=== PATIENT | male | born 1980 | race Caucasian/White ===

== ENCOUNTER 2017-05-10 01:08 | Emergency (ER) | payer SELFPAY ==
[~2017-05-10] VITALS: Ht 177.8 cm; Wt 73.9 kg
[~2017-05-10 01:08] MED LIST: ACHD5005 PO; ASP81CT PO; ATOR40TA70 PO; CPR500T PO; CYCL10TA9 PO; DOXY100C2 PO; FENO145T2 PO; GBPN300C PO; GEMF600T3 PO; HYDR-3583 PO; IBP800T PO; KCL10CCR PO; LISI5TAB PO; OMEP-10 PO; ONDA4TAB8 SL; PRD20T PO; PRM25T PO; SULF1TAB38 PO; TRAM50TA2 PO; TRM50T PO
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
[2017-05-10] MEDS ORDERED: NS IV 1000 ML 1,000 ML IV SCH (01:19)
[2017-05-10] MEDS ORDERED: fentaNYL INJECTION 100 MCG/2 ML AMP IVP STA (01:19)
[2017-05-10] MEDS ORDERED: KETOROLAC 30 MG/ML VIAL IVP STA (01:19)
--- NOTE | 2017-05-10 01:26 | ED Back Pain ---
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 He presented here right after onset that could not wait for the admission exchange clerk to check him and so he left reportedly to go to another hospital. He states that he had to turn around and come back because the pain was too severe. He did have acute onset and denies any recent injury. Pain is not worse with movement and in fact nothing seems to make it better or worse. States the pain feels like it's inside on the left side posterior lateral at the area of the kidney. Reports that he's had kidney stones before but this does not feel like that. Location: Other (left flank) Timing/Duration: 1 Hour Severity: Moderate, Severe Pain/Injury Location: Back Radiation: Other (none) Method of Injury: Unknown Modifying Factors: Worse With Movement Associated Symptoms: No muscle spasms, No weakness, No numbness in legs/feet, No tingling in legs/feet, No sensory/motor loss, No lower back pain, No loss of bladder control, No loss of bowel control Allergies and Home Medications Allergies Coded Allergies: No Known Drug Allergies (Unverified , 04/15/09) Patient Home Medication List Home Medication List Reviewed: Yes Constitutional: see HPI, No chills, No fever EENTM: no symptoms reported Respiratory: no symptoms reported Cardiovascular: no symptoms reported Gastrointestinal: No diarrhea, No nausea, No vomiting Genitourinary: No dysuria, pain (left flank) Musculoskeletal: back pain Skin: no symptoms reported All Other Systems Reviewed Negative Unless Noted: Yes Past Spuahkv-Aguvio-Iiekpq Hx Patient Social History Alcohol Use: Denies Use Recreational Drug Use: No Smoking Status: Current Everyday Smoker Type Used: Cigarettes Recent Foreign Travel: No Contact w/Someone Who Travel: No Recent Infectious Disease Expo: No Recent Hopitalizations: No Physical Abuse: No Sexual Abuse: No Mistreated: No Fear: No Seasonal Allergies Seasonal Allergies: No Surgeries History of Surgeries: No Respiratory History of Respiratory Disorde: No Cardiovascular History of Cardiac Disorders: No Neurological History of Neurological Disord: No Reproductive System Hx Reproductive Disorders: No Gastrointestinal History of Gastrointestinal Di: Yes Gastrointestinal Disorders: Gastroesophageal Reflux Musculoskeletal History of Musculoskeletal Dis: No Endocrine History of Endocrine Disorders: No Cancer History of Cancer: No Psychosocial History of Psychiatric Problem: Yes Behavioral Health Disorders: Anxiety, Depression Suicide Risk Score: 0 Integumentary History of Skin or Integumenta: No Blood Transfusions History of Blood Disorders: No Adverse Reaction to a Blood Tr: No Reviewed Nursing Assessment Reviewed/Agree w Nursing PMH: Yes Family Medical History Significant Family History: No Pertinent Family Hx, Cancer, Diabetes Physical Exam Vital Signs Vital Signs - First Documented 05/10/17 01:10 Temp 97.0 Pulse 104 Resp 20 B/P (MAP) 148/97 (114) Pulse Ox 99 O2 Delivery Room Air Capillary Refill : Less Than 3 Seconds General Appearance: WD/WN, Moderate Distress HEENT: Pharynx Normal, Other (poor dentition) Neck: Full Range of Motion, Normal Inspection, Non Tender, Supple Cardiovascular: No Murmur, Tachycardia Respiratory: Lungs Clear, Normal Breath Sounds Gastrointestinal: Non Tender, Soft Back: No Vertebral Tenderness, CVA Tenderness (L), No CVA Tenderness (R) Extremity: Normal Capillary Refill, Normal Inspection, Normal Range of Motion, Non Tender Neurologic/Psychiatric: Alert, Oriented x3 Skin: Normal Color, Warm/Dry Progress/Results/Core Measures Results/Orders Lab Results Laboratory Tests Test 05/10/17 01:21 05/10/17 01:34 Range/Units Urine Color RED H Urine Clarity SLIGHTLY CLOUDY Urine pH 5 5-9 Urine Specific [place] 1.020 1.016-1.022 Urine Protein 2+ H NEGATIVE Urine Glucose (UA) NEGATIVE NEGATIVE Urine Ketones NEGATIVE NEGATIVE Urine Nitrite NEGATIVE NEGATIVE Urine Bilirubin NEGATIVE NEGATIVE Urine Urobilinogen NORMAL NORMAL MG/DL Urine Leukocyte Esterase 1+ H NEGATIVE Urine RBC (Auto) 5+ H NEGATIVE Urine RBC >100 H /HPF Urine WBC 0-2 /HPF Urine Squamous Epithelial Cells RARE /HPF Urine Crystals NONE /LPF Urine Bacteria TRACE /HPF Urine Casts NONE /LPF Urine Mucus NEGATIVE /LPF Urine Culture Indicated NO Urine Opiates Screen NEGATIVE NEGATIVE Urine Oxycodone Screen NEGATIVE NEGATIVE Urine Methadone Screen NEGATIVE NEGATIVE Urine Propoxyphene Screen NEGATIVE NEGATIVE Urine Barbiturates Screen NEGATIVE NEGATIVE Ur Tricyclic Antidepressants Screen NEGATIVE NEGATIVE Urine Phencyclidine Screen NEGATIVE NEGATIVE Urine Amphetamines Screen POSITIVE H NEGATIVE Urine Methamphetamines Screen POSITIVE H NEGATIVE Urine Benzodiazepines Screen NEGATIVE NEGATIVE Urine Cocaine Screen NEGATIVE NEGATIVE Urine Cannabinoids Screen POSITIVE H NEGATIVE White Blood Count 16.0 H 4.3-11.0 10^3/uL Red Blood Count 4.76 4.35-5.85 10^6/uL Hemoglobin 14.2 13.3-17.7 G/DL Hematocrit 41 40-54 % Mean Corpuscular Volume 87 80-99 FL Mean Corpuscular Hemoglobin 30 25-34 PG Mean Corpuscular Hemoglobin Concent 34 32-36 G/DL Red Cell Distribution Width 13.7 10.0-14.5 % Platelet Count 364 130-400 10^3/uL Mean Platelet Volume 8.3 7.4-10.4 FL Neutrophils (%) (Auto) 78 H 42-75 % Lymphocytes (%) (Auto) 14 12-44 % Monocytes (%) (Auto) 7 0-12 % Eosinophils (%) (Auto) 1 0-10 % Basophils (%) (Auto) 0 0-10 % Neutrophils # (Auto) 12.5 H 1.8-7.8 X 10^3 Lymphocytes # (Auto) 2.2 1.0-4.0 X 10^3 Monocytes # (Auto) 1.1 H 0.0-1.0 X 10^3 Eosinophils # (Auto) 0.1 0.0-0.3 10^3/uL Basophils # (Auto) 0.0 0.0-0.1 10^3/uL Neutrophils % (Manual) 75 % Lymphocytes % (Manual) 16 % Monocytes % (Manual) 6 % Eosinophils % (Manual) 2 % Basophils % (Manual) 0 % Band Neutrophils 0 % Reactive Lymphocytes 1 % Blood Morphology Comment NORMAL Sodium Level 137 135-145 MMOL/L Potassium Level 3.7 3.6-5.0 MMOL/L Chloride Level 105 98-107 MMOL/L Carbon Dioxide Level 22 21-32 MMOL/L Anion Gap 10 5-14 MMOL/L Blood Urea Nitrogen 13 7-18 MG/DL Creatinine 1.19 0.60-1.30 MG/DL Estimat Glomerular Filtration Rate > 60 BUN/Creatinine Ratio 11 Glucose Level 117 H 70-105 MG/DL Calcium Level 9.0 8.5-10.1 MG/DL Total Bilirubin 0.3 0.1-1.0 MG/DL Aspartate Amino Transf (AST/SGOT) 18 5-34 U/L Alanine Aminotransferase (ALT/SGPT) 14 0-55 U/L Alkaline Phosphatase 70 40-136 U/L C-Reactive Protein High Sensitivity 0.38 0.00-0.50 MG/DL Total Protein 6.8 6.4-8.2 GM/DL Albumin 4.1 3.2-4.5 GM/DL My Orders Orders - CHACE MARTIN MD Cbc With Automated Diff (05/10/17:19) Comprehensive Metabolic Panel (05/10/17:19) Hs C Reactive Protein (05/10/17:) Drug Screen Stat (Urine) (05/10/17:) Ua Culture If Indicated (05/10/17) Ct Abd/Pelvis Wo(Kidney Stone) (05/10/17:19) Saline Lock/Iv-Start (05/10/17:) Ns Iv 1000 Ml (Sodium Chloride 0.9%) (05/10/17:19) Fentanyl Injection (Sublimaze Injection (05/10/17:19) Ketorolac Injection (Toradol Injection) (05/10/17:19) Abdomen/Kub 1view (05/10/17 01:29) Manual Differential (05/10/17 01:34) Rx-Hydrocodone/Apap 5-325 Mg (Rx-Vicodin (05/10/17 03:00) Vital Signs/I&O Vital Sign - Last 12Hours 05/10/17 01:10 Temp 97.0 Pulse 104 Resp 20 B/P (MAP) 148/97 (114) Pulse Ox 99 O2 Delivery Room Air Blood Pressure Mean: 114 Progress Note : Progress Note Seen and evaluated. IV, labs, UA, CT abdomen and pelvis ordered. Normal saline 1 L bolus ordered. Fentanyl 75 g IV and Toradol 30 mg IV ordered. Monitor patient. KUB ordered with CT appears to be positive for stone on the left. 0250: Pain much improved. Stone noted on CT. KUB also complete. Discharged home with return precautions. Patient verbalize understanding instructions and agreement with plan. Diagnostic Imaging Diagonstic Imaging: CT Plain Films/CT/US/NM/MRI: abdomen, pelvis Comments Obstructing 4.5 mm calculus at the left UVJ. Reviewed: Reviewed Night Juan Study, Reviewed by Me Departure Impression Impression: Primary Impression: Left ureteral stone Disposition: 01 HOME, SELF-CARE Condition: Improved Departure-Patient Inst. Decision time for Depature: 02:56 Referrals: NO,LOCAL PHYSICIAN (PCP) Primary Care Physician ELLIOTT CORNELIUS MD Patient Instructions: Kidney Stones (DC) Add. Discharge Instructions: All discharge instructions reviewed with patient and/or family. Voiced understanding. You may take ibuprofen 800 mg every 8 hours as needed for pain. Take other medications as directed. Follow-up with your doctor and/or Dr. Cornelius for recheck and further evaluation. Strain your urine and watch for passage of stone. Drink plenty of fluids. Return for worse pain, fever, vomiting, weakness, breathing problems or other concerns as needed. Scripts Hydrocodone Bit/Acetaminophen (Hydrocodone/Acetaminophen 5/325mg Tablet) 1 Tab Tab 1-2 EACH PO Q6H Y for PAIN-MODERATE, #15 TAB 0 Refills Prov: CHACE MARTIN MD 05/10/17 Cephalexin (Cephalexin) 500 Mg Tablet 500 MG PO BID, #14 TAB 0 Refills Prov: CHACE MARTIN MD 05/10/17 CHACE MARTIN MD May 10, 2017 01:26
[2017-05-10 01:29] LABS: BILIRUBIN,URINE NEGATIVE (NEGATIVE); CLARITY,URINE SLIGHTLY CLOUDY; COLOR,URINE RED; GLUCOSE, URINE (UA) NEGATIVE (NEGATIVE); KETONES,URINE NEGATIVE (NEGATIVE); LEUKOCYTE ESTERASE ,URINE 1+ (NEGATIVE); NITRITE,URINE NEGATIVE (NEGATIVE); PH,URINE 5 (5-9); PROTEIN,URINE 2+ (NEGATIVE); UROBILINOGEN,URINE NORMAL (NORMAL)
[2017-05-10 01:37] LABS: BACTERIA,URINE TRACE /HPF; RBC,URINE >100 /HPF; SQUAMOUS EPITHELIAL CELL,UR RARE /HPF; WBC,URINE 0-2 /HPF
[2017-05-10 01:40] LABS: AMPHETAMINE SCREEN, URINE POSITIVE (NEGATIVE); BARBITURATE SCREEN URINE NEGATIVE (NEGATIVE); BENZODIAZEPINES SCREEN URINE NEGATIVE (NEGATIVE); CANNABINOID SCREEN, URINE POSITIVE (NEGATIVE); COCAINE SCREEN URINE NEGATIVE (NEGATIVE); METHADONE STAT NEGATIVE (NEGATIVE); METHAMPHETAMINE SCREEN URINE S POSITIVE (NEGATIVE); OPIATE SCREEN URINE NEGATIVE (NEGATIVE); OXYCODONE STAT NEGATIVE (NEGATIVE); PROPOXYPHENE STAT NEGATIVE (NEGATIVE); TRICYCLIC ANTIDEPRESSANTS SCRE NEGATIVE (NEGATIVE)
[2017-05-10 01:47] LABS: BASOPHILS % (AUTO) 0 % (0-10); EOSINOPHILS # (AUTO) 0.1 10^3/uL (0.0-0.3); EOSINOPHILS % (AUTO) 1 % (0-10); HEMATOCRIT 41 % (40-54); HEMOGLOBIN 14.2 G/DL (13.3-17.7); LYMPHOCYTES # (AUTO) 2.2 X 10^3 (1.0-4.0); LYMPHOCYTES % (AUTO) 14 % (12-44); MEAN CORPUSCULAR HEMOGLOBIN 30 PG (25-34); MEAN CORPUSCULAR HGB CONC 34 G/DL (32-36); MEAN CORPUSCULAR VOLUME 87 FL (80-99); MEAN PLATELET VOLUME 8.3 FL (7.4-10.4); MONOCYTES # (AUTO) 1.1 X 10^3 (0.0-1.0); MONOCYTES % (AUTO) 7 % (0-12); NEUTROPHILS # (AUTO) 12.5 X 10^3 (1.8-7.8); NEUTROPHILS % (AUTO) 78 % (42-75); PLATELET COUNT 364 10^3/uL (130-400); RED BLOOD COUNT 4.76 10^6/uL (4.35-5.85); RED CELL DISTRIBUTION WIDTH 13.7 % (10.0-14.5)
[2017-05-10 02:07] LABS: ALANINE AMINOTRANSFERASE 14 U/L (0-55); ALBUMIN 4.1 GM/DL (3.2-4.5); ALKALINE PHOSPHATASE 70 U/L (40-136); BILIRUBIN,TOTAL 0.3 MG/DL (0.1-1.0); BUN/CREATININE RATIO 11; CARBON DIOXIDE 22 MMOL/L (21-32); CHLORIDE 105 MMOL/L (98-107); CREATININE SERUM 1.19 MG/DL (0.60-1.30); GFR ESTIMATED > 60; GLUCOSE 117 MG/DL (70-105); POTASSIUM 3.7 MMOL/L (3.6-5.0); SODIUM 137 MMOL/L (135-145); TOTAL PROTEIN 6.8 GM/DL (6.4-8.2)
[2017-05-10 02:13] LABS: BAND NEUTROPHILS 0 %; BASOPHILS % (MANUAL) 0 %; EOSINOPHILS % (MANUAL) 2 %; LYMPHOCYTES % (MANUAL) 16 %; MONOCYTES % (MANUAL) 6 %; NEUTROPHILS % (MANUAL) 75 %; RBC MORPH NORMAL; REACTIVE LYMPHOCYTES 1 %
[2017-05-10] MEDS ORDERED: ACHD5005 PO (02:58)
[2017-05-10] MEDS ORDERED: CEPH500T PO (02:58)
[2017-05-10] MEDS ORDERED: RX-HYDROCODONE/APAP 5/325 MG #4 TAB PK PO PRN (03:00)
[2017-05-10 03:16] VITALS: BP 145/87
--- NOTE | 2017-05-10 06:45 | Diagnostic Imaging Report ---
PROCEDURE: CT urinary tract, rule out kidney stone. TECHNIQUE: Multiple contiguous axial images were obtained through the abdomen and pelvis without the use of intravenous contrast. INDICATION: Left flank pain. COMPARISON: 01/02/2013 FINDINGS: Evaluation of the abdominal viscera is mildly limited without contrast. Lower chest: The lung bases are clear. No pericardial or pleural effusion. Peritoneum: No free intraperitoneal air or fluid. Liver and biliary system: Unenhanced liver is normal. The gallbladder is normal. No biliary duct dilation. Spleen and Pancreas: Spleen is normal. Unenhanced pancreas is grossly normal. Adrenals: Normal. tract: Mild left hydronephrosis and hydroureter secondary to a 4 mm distal left ureteral stone at the level of the UVJ. No right-sided renal or ureteral stones. Urinary bladder is decompressed, which limits evaluation. Prostate is not enlarged. GI tract: Stomach is decompressed. No bowel obstruction. No pericolonic inflammatory changes. Normal appendix. Vasculature and Lymph nodes: Normal caliber aorta. No abdominal or pelvic lymphadenopathy. Musculoskeletal: No concerning osseous lesion. IMPRESSION: 1. A 4 mm distal left ureteral stone at the UVJ results in mild left hydronephrosis and hydroureter. 2. Findings are in agreement with the preliminary report. Dictated by: Dictated on workstation # [id number]
--- NOTE | 2017-05-10 07:15 | Diagnostic Imaging Report ---
INDICATION: Left flank pain. COMPARISON: CT abdomen and pelvis performed earlier same day at 1:30 AM. FINDINGS: The patient's known left distal UVJ stone is not radiographically apparent. Nonobstructive bowel gas pattern. No free intraperitoneal air. Normal regional skeleton. IMPRESSION: The patient's known distal left ureteral stone at the UVJ is not radiographically apparent. Dictated by: Dictated on workstation # [id number]
== END 2017-05-10 03:16 | disposition home or self-care (01) ==
LOC: EDUNIT# 01:08 → ER 01:10
DX: N20.1 Calculus of ureter (principal); K21.9 Gastro-esophageal reflux disease without esophagitis; F41.9 Anxiety disorder, unspecified; F32.9 Major depressive disorder, single episode, unspecified; F17.210 Nicotine dependence, cigarettes, uncomplicated
CPT/HCPCS: 36415; 74018; 74176; 80053; 80306; 81000; 85007; 85027; 86141

== ENCOUNTER 2017-07-13 12:08 | Emergency (ER) | payer SELFPAY ==
[~2017-07-13] VITALS: Ht 177.8 cm; Wt 81.6 kg
[~2017-07-13 12:08] MED LIST changes: +CEPH500T PO
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
--- NOTE | 2017-07-13 12:49 | Diagnostic Imaging Report ---
INDICATION: Left shoulder pain. COMPARISON: None. FINDINGS: Three views of the left shoulder were obtained. There is no fracture, dislocation, or other acute bony abnormality identified. The soft tissues appear unremarkable. No radiopaque foreign bodies identified. The visualized portions of the left lung are clear. IMPRESSION: No acute fractures or dislocations of the left shoulder. Dictated by: Dictated on workstation # [id number]
--- NOTE | 2017-07-13 13:11 | ED Upper Extremity ---
General Chief Complaint: Upper Extremity Stated Complaint: LT SHOULDER PAIN Nursing Triage Note: Pt c/o L shoulder pain x2 weeks. Pt reports pain is worse w/ movement. Pt denies any injury. Nursing Sepsis Screen: No Definite Risk Source: patient Exam Limitations: no limitations History of Present Illness Date Seen by Provider: July 13, 2017 Time Seen by Provider: 13:11 Initial Comments 36-year-old male patient presents to the emergency department with complaints of left shoulder pain 2 weeks. Denies any known recent injury. Reports pain is worse with movement. Denies numbness or tingling. Onset: other (2 weeks onset) Pain/Injury Location: left shoulder Method of Injury: unknown Modifying Factors: Worse With Movement Allergies and Home Medications Allergies Coded Allergies: No Known Drug Allergies (Unverified , 04/15/09) Home Medications Cephalexin 500 Mg Tablet, 500 MG PO BID Prescribed by: CHACE MARTIN on 05/10/17 0258 Hydrocodone Bit/Acetaminophen 1 Tab Tab, 1-2 EACH PO Q6H PRN for PAIN-MODERATE Prescribed by: CHACE MARTIN on 05/10/17 0258 Patient Home Medication List Home Medication List Reviewed: Yes Constitutional: no symptoms reported Respiratory: no symptoms reported Cardiovascular: no symptoms reported Musculoskeletal: see HPI; No back pain; joint pain (left shoulder pain.); No joint swelling, No neck pain Skin: no symptoms reported Psychiatric/Neurological: Denies Headache, Denies Numbness, Denies Paresthesia , Denies Tingling, Denies Weakness All Other Systems Reviewed Negative Unless Noted: Yes (Negative excepted noted.) Past Mebbtgp-Phiwzl-Nfxhig Hx Patient Social History Alcohol Use: Denies Use Recreational Drug Use: No ((+) drug screen for amphetamines and methamphetamines on 05/13/17.) Smoking Status: Current Everyday Smoker Type Used: Cigarettes Recent Foreign Travel: No Contact w/Someone Who Travel: No Recent Infectious Disease Expo: No Recent Hopitalizations: No Seasonal Allergies Seasonal Allergies: No Past Medical History Surgeries: No Respiratory: No Cardiac: No Neurological: No Reproductive Disorders: No Gastrointestinal: Yes Gastroesophageal Reflux Musculoskeletal: No Endocrine: No Cancer: No Psychosocial: Yes Anxiety, Depression Integumentary: No Blood Disorders: No Adverse Reaction/Blood Tranf: No Family Medical History Reviewed Nursing Family Hx No Pertinent Family Hx, Cancer, Diabetes Physical Exam Vital Signs Vital Signs - First Documented 07/13/17 12:22 Temp 97.3 Pulse 93 Resp 18 B/P (MAP) 141/83 (102) Pulse Ox 95 O2 Delivery Room Air Capillary Refill : Less Than 3 Seconds General Appearance: WD/WN, no apparent distress HEENT: PERRL/EOMI, pharynx normal, other (poor dentition. Front 2 upper teeth decayed to the gumline.) Neck: non-tender, full range of motion, supple, normal inspection Cardiovascular: normal peripheral pulses, regular rate, rhythm, no murmur Respiratory: lungs clear, normal breath sounds, no respiratory distress, no accessory muscle use Shoulder: normal inspection (normal inspection bilaterally. right shoulder nontender. ), no evidence of injury (bilaterally), normal ROM (bilateral shoulder shows normal ROM), bone tenderness, pain, soft tissue tenderness (left posterior shoulder) Elbow/Forearm: normal inspection (bilateral), non-tender (bilateral), no evidence of injury (bilateral), normal ROM (bilateral) Wrist: Yes normal inspection, Yes non-tender, Yes no evidence of injury, Yes normal ROM Hand: normal inspection, non-tender, no evidence of injury, normal ROM, Bilateral Neurologic/Tendon: normal sensation, normal motor functions, normal tendon functions, responds to pain Neurologic/Psychiatric: no motor/sensory deficits, alert, normal mood/affect, oriented x 3 Skin: normal color, warm/dry Progress/Results/Core Measures Results/Orders My Orders Orders - TERESA QUINTERO Shoulder, Left, 3 Views (07/13/17 12:29) Vital Signs/I&O 07/13/17 12:22 Temp 97.3 Pulse 93 Resp 18 B/P (MAP) 141/83 (102) Pulse Ox 95 O2 Delivery Room Air Blood Pressure Mean: 102 Diagnostic Imaging Diagonstic Imaging: Xray Plain Films/CT/US/NM/MRI: other (left shoulder) Comments SHOULDER, LEFT, 3 VIEWS INDICATION: Left shoulder pain. COMPARISON: None. FINDINGS: Three views of the left shoulder were obtained. There is no fracture, dislocation, or other acute bony abnormality identified. The soft tissues appear unremarkable. No radiopaque foreign bodies identified. The visualized portions of the left lung are clear. IMPRESSION: No acute fractures or dislocations of the left shoulder. Dictated on workstation # [id number] Reviewed: Reviewed by Me (radiology report reviewed by me) Departure Communication (Admissions) Patient seen and evaluated. States he is driving himself home from the emergency department. Patient denies need for pain medication at this time. States he will draft roller picker his prescriptions and take the medications when he gets home. Impression Primary Impression: Strain of tendon of left rotator cuff Qualified Codes: S46.012A - Strain of muscle(s) and tendon(s) of the rotator cuff of left shoulder, initial encounter Disposition: HOME, SELF-CARE Condition: Improved Departure-Patient Inst. Decision time for Depature: 13:20 Referrals: NO,LOCAL PHYSICIAN (PCP) Primary Care Physician YONIS MOSHER (Family) Primary Care Physician Patient Instructions: Muscle Strain (DC) Add. Discharge Instructions: All discharge instructions reviewed with patient and/or family. Voiced understanding. Medications as instructed. Tylenol Extra Strength over-the- counter as directed for pain. Use a heating pad or pack as needed for pain. Avoid heavy lifting for 3 days with the left upper extremity. Then increase activity as tolerated. Follow-up with your family practitioner for recheck as an outpatient if no improvement in symptoms. Return to the emergency department for worsened symptoms or any other concerns. Scripts Diclofenac Sodium (Diclofenac Sodium) 75 Mg Tablet.dr 75 MG PO BID PRN for pain, #20 TAB 0 Refills Prov: TERESA QUINTERO 07/13/17 Cyclobenzaprine HCl (Cyclobenzaprine HCl) 10 Mg Tablet 10 MG PO Q8H PRN for SPASMS, #10 TAB 0 Refills Prov: TERESA QUINTERO 07/13/17 Prednisone (Prednisone) 20 Mg Tab 40 MG PO DAILY, #10 TAB 0 Refills Prov: TERESA QUINTERO 07/13/17 Work/School Note: Work Release Form Date Seen in the Emergency Department: July 13, 2017 Return to Work: July 13, 2017 Other Restrictions Listed Below: no heavy lifting with the left upper extremity x3 days. TERESA QUINTERO July 13, 2017 13:11
[2017-07-13] MEDS ORDERED: PRD20T PO (13:23)
[2017-07-13] MEDS ORDERED: DICL75TA2 PO (13:23)
[2017-07-13] MEDS ORDERED: CYCL10TA9 PO (13:23)
[2017-07-13 13:34] VITALS: BP 141/83
== END 2017-07-13 13:34 | disposition home or self-care (01) ==
LOC: EDUNIT# 12:08 → ER 12:11
DX: S46.012A Strain of muscle(s) and tendon(s) of the rotator cuff of left shoulder, initial encounter (principal); K21.9 Gastro-esophageal reflux disease without esophagitis; F41.9 Anxiety disorder, unspecified; F32.9 Major depressive disorder, single episode, unspecified; F17.210 Nicotine dependence, cigarettes, uncomplicated; F15.10 Other stimulant abuse, uncomplicated; X58.XXXA Exposure to other specified factors, initial encounter
CPT/HCPCS: 73030

== ENCOUNTER 2017-07-26 13:05 | Emergency (ER) | payer SELFPAY ==
[~2017-07-26] VITALS: Ht 177.8 cm; Wt 81.6 kg
[~2017-07-26 13:05] MED LIST changes: +DICL75TA2 PO
[2017-07-26] MEDS ORDERED: methylPREDNISolone 80 MG/ML (DEPO MEDROL) VIAL IM ONE (13:30)
[2017-07-26] MEDS ORDERED: KETOROLAC 30 MG/ML VIAL IM ONE (13:30)
[2017-07-26] MEDS ORDERED: ORPHENADRINE 60 MG/2 ML (NORFLEX) AMP IM ONE (13:30)
--- NOTE | 2017-07-26 13:32 | ED Upper Extremity ---
General Chief Complaint: Upper Extremity Stated Complaint: CP,SHOULDER PAIN,CAN'T FEEL LT ARM Nursing Triage Note: PT REPORTS PAIN IN LEFT SHOULDER X 1 MONTH. WAS SEEN IN OUR ER APPROX 1 WEEK AGO FOR SHOULDER DISCOMFORT PER PT AND GIVEN STEROIDS. PT REPORTS THIS AM PAIN IS WORSENING OVER LAST 20 MINUTES, WITH INTERMITTENT SHARP PAIN, AND TIGHTNESS TO UPPER CHEST, PT REPORTS "FEELS LIKE HAND IS ASLEEP AND TINGLING." Nursing Sepsis Screen: No Definite Risk Source: patient Exam Limitations: no limitations History of Present Illness Date Seen by Provider: July 26, 2017 Time Seen by Provider: 13:18 Initial Comments The patient presents to the ER by private conveyance with a chief complaint of left shoulder pain and numbness that started about 20 minutes ago in his left arm. He says it feels like pins and needles when his foot goes asleep. He was seen 12 days ago in this ER for same complaint that time he was not having any numbness or neurologic deficits area he was diagnosed with rotator cuff strain/ sprain. He was put on a short burst of steroids, NSAIDs and muscle relaxants which she said helped but they have ran out. He has not followed up with his primary care office for this. He has never had a traumatic injury to this shoulder nor any surgeries. He does not follow with an orthopedic surgeon. He is right-handed and works in [employer]. The pain is about the same as it was before however the numbness is new and what concerns him today. He has no history of recent surgeries, periods of immobility or pain in his calves, shortness of breath, hemoptysis. Allergies and Home Medications Allergies Coded Allergies: No Known Drug Allergies (Unverified , 04/15/09) Home Medications Cephalexin 500 Mg Tablet, 500 MG PO BID Prescribed by: CHACE MARTIN on 05/10/17257 Cyclobenzaprine HCl 10 Mg Tablet, 10 MG PO Q8H PRN for SPASMS Prescribed by: TERESA QUINTERO on 07/13/17 132 Diclofenac Sodium 75 Mg Tablet.dr, 75 MG PO BID PRN for pain Prescribed by: TERESA QUINTERO on 07/13/17 132 Hydrocodone Bit/Acetaminophen 1 Tab Tab, 1-2 EACH PO Q6H PRN for PAIN-MODERATE Prescribed by: CHACE MARTIN on 05/10/17257 Prednisone 20 Mg Tab, 40 MG PO DAILY Prescribed by: TERESA QUINTERO on 07/13/17 1323 Patient Home Medication List Home Medication List Reviewed: Yes Constitutional: No chills, No diaphoresis EENTM: No hearing loss, No ear pain Respiratory: No cough, No short of breath Cardiovascular: No chest pain, No edema, No Hx of Intervention, No palpitations , No syncope, No vascular heart diseas Gastrointestinal: No abdominal pain, No constipation, No diarrhea Genitourinary: No discharge, No dysuria Musculoskeletal: No back pain; joint pain (left shoulder), muscle pain (left pectoralis, deltoid) Skin: No pruritus, No rash Past Legbyku-Bksqhp-Ihrnru Hx Patient Social History Alcohol Use: Denies Use Recreational Drug Use: Yes Drug of Choice: MJ Smoking Status: Current Everyday Smoker Type Used: Cigarettes Recent Foreign Travel: No Contact w/Someone Who Travel: No Recent Infectious Disease Expo: No Recent Hopitalizations: No Seasonal Allergies Seasonal Allergies: No Past Medical History Surgeries: No Respiratory: No Cardiac: No Neurological: No Reproductive Disorders: No Gastrointestinal: Yes Gastroesophageal Reflux Musculoskeletal: No Endocrine: No HEENT: No Cancer: No Psychosocial: Yes Anxiety, Depression Integumentary: No Blood Disorders: No Adverse Reaction/Blood Tranf: No Family Medical History No Pertinent Family Hx, Cancer, Diabetes Physical Exam Vital Signs Vital Signs - First Documented 07/26/17 13:14 Pulse 100 Resp 18 B/P (MAP) 130/76 (94) Pulse Ox 99 O2 Delivery Room Air Capillary Refill : Less Than 3 Seconds General Appearance: WD/WN, no apparent distress, other (rhythmic movement tic of his mandible and arms.) HEENT: PERRL/EOMI, TMs normal, other (severe dental caries front incisors bilaterally) Neck: non-tender, full range of motion, supple, normal inspection Cardiovascular: normal peripheral pulses, regular rate, rhythm, no edema Respiratory: normal breath sounds, no respiratory distress, no accessory muscle use, other (left pectoralis and shoulder tender to palpation) Gastrointestinal: normal bowel sounds, non tender, soft Back: normal inspection, no vertebral tenderness Shoulder: normal inspection, normal ROM (tenderness on abduction left), pain, soft tissue tenderness (infraspinatus tender to palpation) Elbow/Forearm: normal inspection, non-tender, no evidence of injury, normal ROM , Left Wrist: Yes normal inspection, Yes non-tender, Yes no evidence of injury, Yes normal ROM Hand: normal inspection, non-tender, no evidence of injury, normal ROM, Left Reflexes: 2+ bicep (R), 2+ bicep (L), 2+ tricep (R), 2+ tricep (L) Neurologic/Tendon: normal sensation, normal motor functions, normal tendon functions, responds to pain, no evidence tendon injury Neurologic/Psychiatric: supervisor powdered sugar II-XII nml as tested, alert, normal mood/affect, oriented x 3 Skin: normal color, warm/dry, other (no erythema, evidence of track long, bruising etc.) Lymphatic: no adenopathy Progress/Results/Core Measures Results/Orders My Orders Orders - DIAMOND NOVA Ketorolac Injection (Toradol Injection) (07/26/17 13:30) Methylprednisolone Acetate Inj (Depo-Med (07/26/17 13:30) Orphenadrine Injection (Norflex Injectio (07/26/17 13:30) Shoulder, Left, 3 Views (07/26/17 13:26) Medications Given in ED Current Medications Medications Dose Ordered Sig/Erin Route Start Time Stop Time Status Last Admin Dose Admin Ketorolac Tromethamine 30 mg ONCE ONCE IM 07/26/17 13:30 07/26/17 13:31 DC 07/26/17 14:32 30 MG Methylprednisolone Acetate 80 mg ONCE ONCE IM 07/26/17 13:30 07/26/17 13:31 DC 07/26/17 14:32 80 MG Orphenadrine Citrate 60 mg ONCE ONCE IM 07/26/17 13:30 07/26/17 13:31 DC 07/26/17 14:36 60 MG Vital Signs/I&O 07/26/17 13:14 Pulse 100 Resp 18 B/P (MAP) 130/76 (94) Pulse Ox 99 O2 Delivery Room Air Blood Pressure Mean: 94 Progress Progress Note : Time: 13:38 Progress Note The patient's pain is chronic for the last several weeks now and does seem to be related to the muscles of his shoulder. What concerned him is the paresthesias. His motor nerves and sensory nerves are intact as tested paresthesias which is probably local inflammation causing a brachial compression syndrome versus cervical radiculopathy. I can't find a specific point to push on where doing a pain point injection would be useful so were discontinue use and IM steroid, NSAIDs and muscle relaxants. Be happy to give him a referral to orthopedics and we have encouraged him to follow up with his primary care doctor to get this done. There does not clinically seem to be a coronary or arterial source of his symptoms. He has symmetric bounding radial pulses. Diagnostic Imaging Diagonstic Imaging: Xray Plain Films/CT/US/NM/MRI: other (left shoulder 3 v) Comments VIA [facility]. [place], [place] NAME: ANIBAL MENJIVAR III [facility] REC#: [id number] PT STATUS: REG ER : 1980 PHYSICIAN: DIAMOND NOVA MD ADMIT DATE: 07/26/17/ER Draft Date of Exam:07/26/17 SHOULDER, LEFT, 3 VIEWS INDICATION: Left shoulder pain. AP, oblique, and transscapular views of the left shoulder are obtained. FINDINGS: No fracture or dislocation is seen. There is no acute bony abnormality. IMPRESSION: Negative left shoulder. Dictated on workstation # [id number] Dict: 07/26/17 1422 Trans: 07/26/17 1424 BERNARDINO [id number] Interpreted by: QUINTON ARELLANO MD Electronically signed by: Departure Impression Primary Impression: Rotator cuff injury Qualified Codes: S46.002A - Unspecified injury of muscle(s) and tendon(s) of the rotator cuff of left shoulder, initial encounter Additional Impression: Arm paresthesia, left Disposition: 01 HOME, SELF-CARE Condition: Improved Departure-Patient Inst. Decision time for Depature: 14:42 Referrals: NO,LOCAL PHYSICIAN (PCP) Primary Care Physician YONIS MOSHER (Family) Primary Care Physician MARAH HURTADO DO Patient Instructions: Rotator Cuff Injury (DC) Add. Discharge Instructions: Start taking Naprosyn 2 capsules twice a day or ibuprofen 4 tablets 3 times a day on schedule for the next 4 weeks. You can also take Tylenol 1000 mg every 8 hours for breakthrough pain. You can apply icy hot or other similar creams to her shoulder. You can use an ice pack for the next couple days to bring the swelling down. The steroid will start taking in over the next 12-[address] Hurtado at [facility] to get an appointment. You will probably need referral from your primary care doctor so you should also call Yonis Mosher and request an appointment for reevaluation of your shoulder. All discharge instructions reviewed with patient and/or family. Voiced understanding. Work/School Note: Work Release Form Date Seen in the Emergency Department: July 26, 2017 Return to Work: July 27, 2017 Restrictions: Need Release from Doctor Other Restrictions Listed Below: No lifting more than 10 pounds left shoulder for 2 weeks. Copy Copies To 1: HIWOT MENJIVAR DO; MARAH HURTADO DO DIAMOND NOVA July 26, 2017 13:32
--- NOTE | 2017-07-26 14:25 | Diagnostic Imaging Report ---
INDICATION: Left shoulder pain. AP, oblique, and transscapular views of the left shoulder are obtained. FINDINGS: No fracture or dislocation is seen. There is no acute bony abnormality. IMPRESSION: Negative left shoulder. Dictated by: Dictated on workstation # [id number]
[2017-07-26 15:05] VITALS: BP 120/66
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
== END 2017-07-26 15:04 | disposition home or self-care (01) ==
LOC: EDUNIT# 13:05 → ER 13:06
DX: S46.002A Unspecified injury of muscle(s) and tendon(s) of the rotator cuff of left shoulder, initial encounter (principal); R20.2 Paresthesia of skin; K21.9 Gastro-esophageal reflux disease without esophagitis; F41.9 Anxiety disorder, unspecified; F32.9 Major depressive disorder, single episode, unspecified; F12.10 Cannabis abuse, uncomplicated; F17.210 Nicotine dependence, cigarettes, uncomplicated; Z79.52 Long term (current) use of systemic steroids; X58.XXXA Exposure to other specified factors, initial encounter
CPT/HCPCS: 73030; 96372

== ENCOUNTER → 2017-08-09 | Outpatient (CLI) | payer SELFPAY ==
--- NOTE | 2017-08-09 13:08 | Diagnostic Imaging Report ---
PROCEDURE: MRI left upper extremity without contrast. TECHNIQUE: Multiplanar, multisequence non contrast-enhanced MRI of the left upper extremity was accomplished. INDICATION: Shoulder injury with pain. FINDINGS: The acromioclavicular joint is unremarkable. There is mild thickening and increased signal intensity in the supraspinatous tendon likely reflecting some tendinopathy. Infraspinatus teres minor and subscapularis muscles and tendons are intact. There is no evidence of a full-thickness rotator cuff tear. All 4 muscles of the rotator cuff demonstrate normal volume and signal intensity. The labrum appears to be normal in signal intensity and morphology. Biceps tendon is seen in the bicipital groove and is normal in appearance. Biceps anchor is intact. There are no marrow signal intensity abnormalities. There are no other focal soft tissue. IMPRESSION: Mild tendinopathy of the supraspinatous tendon without evidence of full-thickness rotator cuff tear. No other internal derangement of the shoulder. Dictated by: Dictated on workstation # [id number]
== END ==
LOC: RAD 08:52
PROVIDERS: ATTEND Physician Assistant
DX: M67.814 Other specified disorders of tendon, left shoulder (principal)
CPT/HCPCS: 73221

== ENCOUNTER → 2017-08-24 | Outpatient (CLI) | payer SELFPAY ==
--- NOTE | 2017-08-24 12:48 | Diagnostic Imaging Report ---
PROCEDURE: MR imaging cervical spine without contrast. INDICATION: Neck pain with left shoulder pain. Limited range of motion for over a month. No known injury. TECHNIQUE: Multiplanar, multisequence MR imaging of the cervical spine was performed without contrast. CORRELATION STUDY: None. FINDINGS: Trace retrolisthesis of C3 on C4. Cervical vertebral body heights are fairly well maintained. Very slight anterior wedging at T1 level. No concerning geographic lesion. Odontoid intact. Craniocervical junction unremarkable. C2-C3 level: There is suggestion of mild posterior spondylitic ridging. There does appear to be perhaps very slight paramidline disc bulge with slight flattening of the ventral thecal sac. No significant canal stenosis. C3-C4 level: Loss of disc space height. Rather prominent asymmetric areas of disc bulge and protrusion as well as endplate osteophyte formation. There is flattening of the ventral thecal sac. Midline AP spinal canal at 8 mm. There is contour deformity and flattening of the cord. There is significant absence of surrounding CSF. Rather significant bilateral foraminal narrowing with asymmetric disc and osteophyte formation extending into the foramina, appearing slightly greater on the left. Question slight T2 cord signal changes may be reflective of mild edema. C4-C5 level: Also with loss of disc space height with rather significant disc bulge/protrusion as well as endplate and osteophyte formation. This results in flattening of the ventral thecal sac and spinal canal narrowing to approximately 7 mm. There is some contour deformity of the cord. Disc and osteophyte formation result in significant bilateral foraminal narrowing, perhaps slightly greater on the left. Generalized absence of surrounding CSF. C5-C6 level: Mild posterior spondylitic presence with slight flattening of the ventral thecal sac. AP dimension of the spinal canal at approximately 1 cm. No definitive evidence for foraminal narrowing. C6-C7 level: Slight loss of disc space height. There is what appears to be slightly prominent asymmetric disc and osteophyte formation to the left of midline with left ventrolateral and exiting neuroforaminal stenosis. Slight contour deformity of the ventral aspect of the thecal sac. Right foramina better preserved and unremarkable. C7-T1 level: Unremarkable. IMPRESSION: 1. C3-C4 and C4-C5 disc spaces with significant disc and osteophyte formation including with disc protrusion resulting in significant spinal canal and foraminal narrowing, left greater than right. There is contour deformity with some flattening of the cord at these levels. Possibility of early cord edema at C3-C4 level not excluded. 2. Left paramidline disc and osteophyte formation at C6-C7 level resulting in left ventrolateral and exiting neuroforaminal stenosis. Dictated by: Dictated on workstation # [id number]
== END ==
LOC: RAD 08:01
PROVIDERS: ATTEND Physician Assistant
DX: M48.02 Spinal stenosis, cervical region (principal); M99.71 Connective tissue and disc stenosis of intervertebral foramina of cervical region; M50.21 Other cervical disc displacement, high cervical region; M43.8X2 Other specified deforming dorsopathies, cervical region
CPT/HCPCS: 72141

== ENCOUNTER 2018-03-11 18:59 | Emergency (ER) | payer SELFPAY, OTHER | END 2018-03-11 20:38 | disposition home or self-care (01) | LOC: ER 18:59 ==

== ENCOUNTER 2018-03-16 07:50 | Emergency (ER) | payer SELFPAY ==
[~2018-03-16] VITALS: Ht 177.8 cm; Wt 83.9 kg
--- OUTSIDE RECORDS SUMMARY | 2018-03-16 07:56 | XMS REPORT ---
Author Author Tracee Bush Organization [facility] Address [address] [place] [address] Care Team Providers Care Brick Grader Name Role Phone Tracee Bush Unavailable PROBLEMS Type Condition ICD9-CM Code [id number] Code Onset Dates Condition Status SNOMED Code Problem Anxiety F41.9 Active 06224344 Problem Moderate episode of recurrent major depressive disorder F33.1 Active 421891027 Problem GERD without esophagitis K21.9 Active 642969450 ALLERGIES No Known Allergies ENCOUNTERS Encounter Location Date Diagnosis [facility] [address] [place] [address] [id number] Feb, Risk for dental caries, low Z91.841 ; Risk for dental caries, moderate Z91.842 and Risk for dental caries, high Z91.843 [facility] [address] [place] [address] [id number] Feb, Anxiety F41.9 ; Moderate episode of recurrent major depressive disorder F33.1 and GERD without esophagitis K21.9 IMMUNIZATIONS No Known Immunizations SOCIAL HISTORY Never Assessed REASON FOR VISIT [facility] physical PLAN OF CARE Activity Details Follow Up 2 Weeks,prn Reason:f/u meds VITAL SIGNS Temperature 98.5 degrees Fahrenheit 2018-02-17 Heart Rate 89 /min 2018-02-17 Respiratory Rate 19 /min 2018-02-17 Oximetry 97 % 2018-02-17 Weight 191 lbs 2018-02-17 Height 70 in 2018-02-17 BMI 27.4 kg/m2 2018-02-17 Blood pressure systolic 125 mm Hg 2018-02-17 Blood pressure diastolic 83 mm Hg 2018-02-17 MEDICATIONS Medication Instructions Dosage Frequency Start Date End Date Duration Status BusPIRone HCl 15 MG Orally Twice a day 1 tablet 12h Feb, 30 days Active Zoloft 50 MG Orally Once a day 1 tablet 24h Feb, 30 day(s) Active Omeprazole 20 MG Orally Once a day 1 capsule 24h Feb, 30 day(s ) Active RESULTS No Results PROCEDURES No Known procedures INSTRUCTIONS MEDICATIONS ADMINISTERED No Known Medications MEDICAL (GENERAL) HISTORY Type Description Date Medical History Anxiety Medical History Depression Medical History GERD
--- OUTSIDE RECORDS SUMMARY | 2018-03-16 07:56 | XMS REPORT ---
Author Author ZAHRAA DOMINGUEZ Organization [facility] Address [address] [place] [address] Care Team Providers Care Mortgage Loan Originator Name Role Phone ZAHRAA DOMINGUEZ Unavailable PROBLEMS Type Condition ICD9-CM Code [id number] Code Onset Dates Condition Status SNOMED Code Problem Major depressive disorder, recurrent episode, moderate F33.1 Active 296705209 Problem Methamphetamine use disorder, moderate F15.20 Active 344209613 Problem Lumbago 724.2 Active 975924136 ALLERGIES No Information ENCOUNTERS Encounter Location Date Diagnosis [facility] [id number] [place] [phone] Dec, [facility] [id number] [place] [phone] Dec, [facility] [id number] [place] [phone] Dec, Major depressive disorder, recurrent episode, moderate F33.1 and Methamphetamine use disorder, moderate F15.20 [facility] [id number] [place] [phone] Jun, [facility] [id number] [place] [phone] Jun, [facility] [id number] [place] [phone] Nov, [facility] [address] [phone] Nov, [facility] [id number] [place] [phone] Nov, IMMUNIZATIONS No Known Immunizations SOCIAL HISTORY Never Assessed REASON FOR VISIT intake PLAN OF CARE Activity Details Follow Up next available Reason:depression & anxiety VITAL SIGNS MEDICATIONS Unknown Medications RESULTS No Results PROCEDURES Procedure Date Ordered Result Body Site Psych diagnostic evaluation, new patient Dec 06, 2017 INSTRUCTIONS MEDICATIONS ADMINISTERED No Known Medications
--- OUTSIDE RECORDS SUMMARY | 2018-03-16 07:56 | XMS REPORT ---
Author Author Nicho Marcelakesha Shah [facility] Address [address] [place] [address] Care Team Providers Care Event Marketing Assistant Name Role Phone Marcela Torre Unavailable PROBLEMS Type Condition ICD9-CM Code [id number] Code Onset Dates Condition Status SNOMED Code Problem Anxiety F41.9 Active 12447412 Problem Moderate episode of recurrent major depressive disorder F33.1 Active 035785793 Problem GERD without esophagitis K21.9 Active 931986392 ALLERGIES No Information ENCOUNTERS Encounter Location Date Diagnosis [facility] [address] [place] [id number] Feb, Risk for dental caries, low Z91.841 ; Risk for dental caries, moderate Z91.842 and Risk for dental caries, high Z91.843 [facility] [address] [place] [id number] Feb, Anxiety F41.9 ; Moderate episode of recurrent major depressive disorder F33.1 and GERD without esophagitis K21.9 IMMUNIZATIONS No Known Immunizations SOCIAL HISTORY Never Assessed REASON FOR VISIT Integrated dental screening PLAN OF CARE VITAL SIGNS MEDICATIONS Unknown Medications RESULTS No Results PROCEDURES Procedure Date Ordered Result Body Site SCREENING OF A PATIENT Feb 17, 2018 CARIES RISK ASSESS DOC FIND HI RSK Feb 17, 2018 Integrated Visit Feb 17, 2018 INSTRUCTIONS MEDICATIONS ADMINISTERED No Known Medications MEDICAL (GENERAL) HISTORY Type Description Date Medical History Anxiety Medical History Depression Medical History GERD
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
[2018-03-16 08:12] LABS: BASOPHILS # (AUTO) 0.1 10^3/uL (0.0-0.1); BASOPHILS % (AUTO) 1 % (0-10); EOSINOPHILS # (AUTO) 0.4 10^3/uL (0.0-0.3); EOSINOPHILS % (AUTO) 3 % (0-10); HEMATOCRIT 48 % (40-54); HEMOGLOBIN 16.2 G/DL (13.3-17.7); LYMPHOCYTES % (AUTO) 47 % (12-44); MEAN CORPUSCULAR HEMOGLOBIN 29 PG (25-34); MEAN CORPUSCULAR HGB CONC 34 G/DL (32-36); MEAN CORPUSCULAR VOLUME 87 FL (80-99); MEAN PLATELET VOLUME 8.8 FL (7.4-10.4); MONOCYTES # (AUTO) 0.7 X 10^3 (0.0-1.0); MONOCYTES % (AUTO) 7 % (0-12); NEUTROPHILS # (AUTO) 4.5 X 10^3 (1.8-7.8); NEUTROPHILS % (AUTO) 42 % (42-75); PLATELET COUNT 379 10^3/uL (130-400); RED BLOOD COUNT 5.56 10^6/uL (4.35-5.85); RED CELL DISTRIBUTION WIDTH 14.2 % (10.0-14.5); WHITE BLOOD COUNT 10.7 10^3/uL (4.3-11.0)
--- NOTE | 2018-03-16 08:18 | Diagnostic Imaging Report ---
PROCEDURE: CT head wo r/o stroke. TECHNIQUE: Multiple contiguous axial images were obtained through the brain without the use of intravenous contrast. INDICATION: Stroke. Left arm weakness. Chest pain. COMPARISON: CT head without contrast 05/09/2009. FINDINGS: No CT evidence for territorial infarction. No intracranial hemorrhage, mass effect, hydrocephalus or extra-axial fluid collections. Mild mucosal thickening in the ethmoid sinuses. The mastoids are clear. The skull base and calvarium are intact. IMPRESSION: 1. No acute intracranial CT findings. 2. Mild mucosal thickening in the ethmoid sinuses. Dictated by: Dictated on workstation # [id number]
[2018-03-16 08:24] LABS: FIBRIN DEGRADATION PRODUCTS 0.3 UG/ML (0.00-0.49); PROTHROMBIN TIME PATIENT 12.9 SEC (12.2-14.7)
--- NOTE | 2018-03-16 08:24 | ED Neurological Problem ---
General Chief Complaint: Neuro-Stroke Like Symptoms Stated Complaint: SOB;LEFT ARM NUMB Nursing Triage Note: ARRIVED VIA AMB TO ROOM 04. STATES HE WOKE UP AT 7AM WITH LEFT SIDED CHEST PAIN, SOA, LEFT SIDED ARM WEAKNESS AND NUMBNESS. HX OF ANXIETY. STATES IT HURTS TO TAKE A DEEP BREATH, MOVE HIS LEFT ARM, AND CHEST PAIN IS REPRODUCABLE. Nursing Sepsis Screen: No Definite Risk Source: patient Exam Limitations: no limitations History of Present Illness Date Seen by Provider: Mar 16, 2018 Time Seen by Provider: 07:36 Initial Comments This 37-year-old man presents to the emergency room with complaints of shortness of breath, left upper extremity weakness, and chest pain. He reports waking shortly after 07:00 with a nearly flaccid and numb left upper extremity.. Strength has returned but it still feels uncomfortable with decrease in sensation. Last known well time would be 21:30 when he went to bed. He also reports having intermittent chest pain frequently over the last month. His seems pleuritic in nature and is worse with inspiration. He is noted to be mildly tachycardic and appears anxious. He denies any drug or alcohol use. He is currently in outpatient treatment for substance abuse and has not used methamphetamines for a couple of months per his report. He denies any cough or fever. There are no measurable neurologic deficits on initial assessment. Stroke activation was paged. Allergies and Home Medications Allergies Coded Allergies: No Known Drug Allergies (Unverified , 04/15/09) Home Medications Amoxicillin 500 Mg Capsule, 1,000 MG PO BID Prescribed by: CHASE NUNEZ on 03/16/18 1136 Fluticasone Propionate 9.9 Ml [place].susp, 2 SPRAY NSEACH DAILY 2 SPRAYS PER NOSTRIL DAILY X 2 DAYS THEN 1 SPRAY DAILY Prescribed by: CHASE NUNEZ on 03/16/18 1136 Patient Home Medication List Home Medication List Reviewed: Yes Review of Systems Review of Systems Constitutional: no symptoms reported Eyes: No Symptoms Reported Ears, Nose, Mouth, Throat: no symptoms reported Respiratory: no symptoms reported Cardiovascular: see HPI Gastrointestinal: no symptoms reported Genitourinary: no symptoms reported Musculoskeletal: see HPI Skin: no symptoms reported Psychiatric/Neurological: See HPI Endocrine: No Symptoms Reported Hematologic/Lymphatic: No Symptoms Reported Past Dngjtkz-Dpnkql-Wekcsg Hx Patient Social History Alcohol Use: Denies Use Recreational Drug Use: No Drug of Choice: MJ Smoking Status: Never a Smoker Type Used: Cigarettes Recent Foreign Travel: No Contact w/Someone Who Travel: No Recent Infectious Disease Expo: No Recent Hopitalizations: No Seasonal Allergies Seasonal Allergies: No Past Medical History Surgeries: No Respiratory: No Cardiac: No Neurological: No Reproductive Disorders: No Genitourinary: Yes Kidney Stones Gastrointestinal: Yes Gastroesophageal Reflux Musculoskeletal: Yes (left rotator cuff injury) Endocrine: No HEENT: No Cancer: No Psychosocial: Yes (history of prior substance abuse) Anxiety, Depression Integumentary: No Blood Disorders: No Adverse Reaction/Blood Tranf: No Family Medical History No Pertinent Family Hx, Cancer, Diabetes Physical Exam Vital Signs Vital Signs - First Documented 03/16/18 07:51 Temp 98.0 Pulse 78 Resp 16 B/P (MAP) 143/86 (105) Pulse Ox 98 O2 Delivery Room Air Capillary Refill : Less Than 3 Seconds Height, Weight, BMI Height: 5'10.00" Weight: 185lbs. oz. 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, no motor/sensory deficits, alert, normal mood/affect, oriented x 3 Crainal Nerves: normal hearing, normal speech, PERRL Coordination/Gait: normal finger to nose (normal heel to jaramillo), normal gait Motor/Sensory: no motor deficit, no sensory deficit Skin: normal color, warm/dry Stroke Onset of Symptoms Symptoms onset unknown: Yes (last known well time 21:00 on March 15) NIH Stroke Scale Assessment Select: Initial Level of Consciousness: 0=Alert (0), Level of Consciousness- Questions: 0=Answers both month/age (0), LOC Commands: 0=Performs both tasks (0) , Gaze: Normal (0), Visual Valentin: 0=No visual loss (0), Facial Movement ( Facial Paresis): 0=Normal symmetrical mnt (0), Motor Function-Arms Right: 0=No drift (0), Motor Function-Arms Left: 0=No drift (0), Motor Function-Legs Right: 0=No drift (0), Motor Function-Legs Left: 0=No drift (0), Limb Ataxia: 0=Absent (0), Sensory: 0=Normal:no loss (0), Best Language: 0=No aphasia (0), Dysarthria : 0=Normal (0), Extinction & Inattention: 0=No abnormality (0), Total: 0 Progress/Results/Core Measures Results/Orders Lab Results Laboratory Tests Test 03/16/18 07:55 03/16/18 08:54 Range/Units White Blood Count 10.7 4.3-11.0 10^3/uL Red Blood Count 5.56 4.35-5.85 10^6/uL Hemoglobin 16.2 13.3-17.7 G/DL Hematocrit 48 40-54 % Mean Corpuscular Volume 87 80-99 FL Mean Corpuscular Hemoglobin 29 25-34 PG Mean Corpuscular Hemoglobin Concent 34 32-36 G/DL Red Cell Distribution Width 14.2 10.0-14.5 % Platelet Count 379 130-400 10^3/uL Mean Platelet Volume 8.8 7.4-10.4 FL Neutrophils (%) (Auto) 42 42-75 % Lymphocytes (%) (Auto) 47 H 12-44 % Monocytes (%) (Auto) 7 0-12 % Eosinophils (%) (Auto) 3 0-10 % Basophils (%) (Auto) 1 0-10 % Neutrophils # (Auto) 4.5 1.8-7.8 X 10^3 Lymphocytes # (Auto) 5.0 H 1.0-4.0 X 10^3 Monocytes # (Auto) 0.7 0.0-1.0 X 10^3 Eosinophils # (Auto) 0.4 H 0.0-0.3 10^3/uL Basophils # (Auto) 0.1 0.0-0.1 10^3/uL Prothrombin Time 12.9 12.2-14.7 SEC INR Comment 1.0 0.8-1.4 Activated Partial Thromboplast Time 33 24-35 SEC D-Dimer 0.30 0.00-0.49 UG/ML Sodium Level 139 135-145 MMOL/L Potassium Level 4.1 3.6-5.0 MMOL/L Chloride Level 104 98-107 MMOL/L Carbon Dioxide Level 23 21-32 MMOL/L Anion Gap 12 5-14 MMOL/L Blood Urea Nitrogen 19 H 7-18 MG/DL Creatinine 1.12 0.60-1.30 MG/DL Estimat Glomerular Filtration Rate > 60 BUN/Creatinine Ratio 17 Glucose Level 134 H 70-105 MG/DL Calcium Level 9.3 8.5-10.1 MG/DL Corrected Calcium 8.5-10.1 MG/DL Total Bilirubin 0.4 0.1-1.0 MG/DL Aspartate Amino Transf (AST/SGOT) 27 5-34 U/L Alanine Aminotransferase (ALT/SGPT) 46 0-55 U/L Alkaline Phosphatase 63 40-136 U/L Troponin I < 0.028 <0.028 NG/ML Total Protein 8.1 6.4-8.2 GM/DL Albumin 4.9 H 3.2-4.5 GM/DL Serum Alcohol < 10 <10 MG/DL Urine Color YELLOW Urine Clarity CLEAR Urine pH 6 5-9 Urine Specific Show Low 1.025 H 1.016-1.022 Urine Protein 1+ H NEGATIVE Urine Glucose (UA) NEGATIVE NEGATIVE Urine Ketones NEGATIVE NEGATIVE Urine Nitrite NEGATIVE NEGATIVE Urine Bilirubin NEGATIVE NEGATIVE Urine Urobilinogen NORMAL NORMAL MG/DL Urine Leukocyte Esterase NEGATIVE NEGATIVE Urine RBC (Auto) NEGATIVE NEGATIVE Urine RBC NONE /HPF Urine WBC 0-2 /HPF Urine Crystals NONE /LPF Urine Bacteria NEGATIVE /HPF Urine Casts NONE /LPF Urine Mucus NEGATIVE /LPF Urine Culture Indicated NO Urine Opiates Screen NEGATIVE NEGATIVE Urine Oxycodone Screen NEGATIVE NEGATIVE Urine Methadone Screen NEGATIVE NEGATIVE Urine Propoxyphene Screen NEGATIVE NEGATIVE Urine Barbiturates Screen NEGATIVE NEGATIVE Ur Tricyclic Antidepressants Screen NEGATIVE NEGATIVE Urine Phencyclidine Screen NEGATIVE NEGATIVE Urine Amphetamines Screen NEGATIVE NEGATIVE Urine Methamphetamines Screen NEGATIVE NEGATIVE Urine Benzodiazepines Screen NEGATIVE NEGATIVE Urine Cocaine Screen NEGATIVE NEGATIVE Urine Cannabinoids Screen NEGATIVE NEGATIVE My Orders Orders - CHASE WEST MD Cbc With Automated Diff (03/16/18 08:04) Protime With Inr (03/16/18 08:04) Partial Thromboplastin Time (03/16/18 08:04) Comprehensive Metabolic Panel (03/16/18 08:04) Fibrin Degradation Products (03/16/18 08:04) Troponin I (03/16/18 08:04) Ua Culture If Indicated (03/16/18 08:04) Ekg Tracing (03/16/18 08:04) Nothing By Mouth (03/16/18 Lunch) Accucheck Stat ONCE (03/16/18 08:04) Saline Lock/Iv-Start (03/16/18 08:04) Saline Lock/Iv-Start (03/16/18 08:04) Vital Signs Stroke Patient Q15M (03/16/18 08:04) Ct Head Wo-R/O Stroke (03/16/18 08:04) O2 (03/16/18 08:04) Intake & Output 06,14,22 (03/16/18 08:04) Monitor-Rhythm Ecg Trace Only (03/16/18 08:04) Dysphagia Screening Tool (03/16/18 08:04) Chest Pa/Lat (2 View) (03/16/18 08:04) Alcohol (03/16/18 08:05) Drug Screen Stat (Urine) (03/16/18 08:05) Ketorolac Injection (Toradol Injection) (03/16/18 09:00) Saline Lock/Iv-Start (03/16/18 09:30) Ns Iv 1000 Ml (Sodium Chloride 0.9%) (03/16/18 09:30) Diphenhydramine Tablet (Benadryl Tablet) (03/16/18 09:45) Magnesium 1 Gm/100 Ml Ivpb (Magnesium Daniel (03/16/18 09:45) Medications Given in ED Current Medications Medications Dose Ordered Sig/Erin Route Start Time Stop Time Status Last Admin Dose Admin Diphenhydramine HCl 25 mg ONCE ONCE PO 03/16/18 09:45 03/16/18 09:46 DC 03/16/18 09:47 25 MG Ketorolac Tromethamine 15 mg ONCE ONCE IVP 03/16/18 09:00 03/16/18 09:01 DC 03/16/18 09:06 15 MG Magnesium Sulfate/ Dextrose 100 ml @ 100 mls/hr ONCE ONCE IV 03/16/18 09:45 03/16/18 10:44 DC 03/16/18 09:47 100 MLS/HR Sodium Chloride 1,000 ml @ 0 mls/hr Q0M ONCE IV 03/16/18 09:30 03/16/18 09:31 DC 03/16/18 09:47 1,000 MLS/HR Vital Signs/I&O 03/16/18 03/16/18 07:51 11:53 Temp 98.0 Pulse 78 81 Resp 16 16 B/P (MAP) 143/86 (105) 127/65 (85) Pulse Ox 98 98 O2 Delivery Room Air Room Air Blood Pressure Mean: 105 Progress Progress Note : Progress Note Although patient had no measurable focal deficit at the time of assessment, the complained of nearly flaccid left arm upon waking was concerning. Stroke activation was paged. Workup was unremarkable with the exception of incidental sinusitis noted on CT. patient developed left-sided headache and a focus of blurry vision during his ER stay. He was given Toradol for the pain and hydrated. His additionally treated as though he may have an atypical migraine due to the progression of his symptoms. He received magnesium and Benadryl. After a period of rest, his visual aura resolved. He still had some lingering headache. Ultimately, pattern of symptoms appears to resemble a typical migraine. This may have been triggered by sinusitis. He was treated accordingly for sinusitis. Patient was not a TPA candidate as his NIH stroke score was zero with no measurable deficits and his last known well time was greater than 4.5 hours from time of presentation. Initial ECG Impression Date: Mar 16, 2018 Initial ECG Impression Time: 07:56 Initial ECG Rate: 35 Initial ECG Rhythm: S.Tach Comment Sinus tachycardia with no ST elevation or depression. No abnormal intervals or axis deviation. Diagnostic Imaging Diagonstic Imaging: CT Plain Films/CT/US/NM/MRI: head Comments CT head viewed by me and report reviewed. See report below: NAME: ANIBAL MENJIVAR III [facility] REC#: [id number] PT STATUS: REG ER : 1980 PHYSICIAN: CHASE WEST MD ADMIT DATE: 03/16/18/ER Draft Date of Exam:03/16/18 CT HEAD WO-R/O STROKE PROCEDURE: CT head wo r/o stroke. TECHNIQUE: Multiple contiguous axial images were obtained through the brain without the use of intravenous contrast. INDICATION: Stroke. Left arm weakness. Chest pain. COMPARISON: CT head without contrast 05/09/2009. FINDINGS: No CT evidence for territorial infarction. No intracranial hemorrhage, mass effect, hydrocephalus or extra-axial fluid collections. Mild mucosal thickening in the ethmoid sinuses. The mastoids are clear. The skull base and calvarium are intact. IMPRESSION: 1. No acute intracranial CT findings. 2. Mild mucosal thickening in the ethmoid sinuses. Dictated on workstation # [id number] Dict: 03/16/18811 Trans: 03/16/18817 JAMIE [phone] Interpreted by: LIZANDRO ARTEAGA MD Diagonstic Imaging: Xray Plain Films/CT/US/NM/MRI: chest Comments Two-view chest x-ray viewed by me and report reviewed. See report below: NAME: ANIBAL MENJIVAR III [facility] REC#: [id number] PT STATUS: REG ER : 1980 PHYSICIAN: CHASE WEST MD ADMIT DATE: 03/16/18/ER Draft Date of Exam:03/16/18 CHEST PA/LAT (2 VIEW) INDICATION: Left-sided chest pain and shortness of breath PA and lateral chest obtained at 8:34 a.m. and compared with 10/24/2015. Heart and mediastinal silhouette are normal in appearance. The lungs are clear. There is no pneumothorax or pleural fluid. IMPRESSION: Negative chest. Dictated on workstation # [id number] Dict: 03/16/18817 Trans: 03/16/18821 JAMIE [id number] Interpreted by: QUINTON ARELLANO MD Departure Impression Primary Impression: Atypical migraine Additional Impressions: Ethmoid sinusitis Qualified Codes: J01.20 - Acute ethmoidal sinusitis, unspecified Left arm weakness Arm paresthesia, left Atypical chest pain Disposition: 01 HOME, SELF-CARE Condition: Improved Departure-Patient Inst. Decision time for Depature: 11:33 Referrals: GIANNA GUERRA MD (PCP) Primary Care Physician YONIS MOSHER (Family) Primary Care Physician Patient Instructions: Migraine Headache (DC) Add. Discharge Instructions: Follow-up and establish with a primary care provider soon as possible. Return to care if symptoms are worsening. In particular, return to care immediately if you ever notice weakness of an extremity or the face, slurred speech, confusion, sudden vision changes, or anything else that could be related to a stroke. For chest pain or headache you may take ibuprofen up to 600 mg every 6 hours as needed. Add Tylenol (acetaminophen) up to 1000 mg every 6 hours as needed for additional pain relief. Return home and rest in a quiet, calm environment for the remainder of the day. Use Flonase and amoxicillin as prescribed for treatment of sinus infection which may be a trigger for your symptoms. All discharge instructions reviewed with patient and/or family. Voiced understanding. Scripts Fluticasone Propionate (Flonase Allergy Relief) 9.9 Ml [place].susp 2 SPRAY NSEACH DAILY, #1 EACH 2 SPRAYS PER NOSTRIL DAILY X 2 DAYS THEN 1 SPRAY DAILY Prov: CHASE WEST MD 03/16/18 Amoxicillin (Amoxicillin) 500 Mg Capsule 1000 MG PO BID, #40 CAP Prov: CHASE WEST MD 03/16/18 CHASE WEST MD Mar 16, 2018 08:24
[2018-03-16 08:26] LABS: ALANINE AMINOTRANSFERASE 46 U/L (0-55); ALBUMIN 4.9 GM/DL (3.2-4.5); ALKALINE PHOSPHATASE 63 U/L (40-136); BILIRUBIN,TOTAL 0.4 MG/DL (0.1-1.0); BUN/CREATININE RATIO 17; CALCIUM 9.3 MG/DL (8.5-10.1); CARBON DIOXIDE 23 MMOL/L (21-32); CHLORIDE 104 MMOL/L (98-107); CREATININE SERUM 1.12 MG/DL (0.60-1.30); GFR ESTIMATED > 60; GLUCOSE 134 MG/DL (70-105); POTASSIUM 4.1 MMOL/L (3.6-5.0); SODIUM 139 MMOL/L (135-145); TOTAL PROTEIN 8.1 GM/DL (6.4-8.2)
[2018-03-16] MEDS ORDERED: KETOROLAC 30 MG/ML VIAL IVP ONE (09:00)
[2018-03-16 09:05] LABS: BILIRUBIN,URINE NEGATIVE (NEGATIVE); CLARITY,URINE CLEAR; COLOR,URINE YELLOW; GLUCOSE, URINE (UA) NEGATIVE (NEGATIVE); KETONES,URINE NEGATIVE (NEGATIVE); LEUKOCYTE ESTERASE ,URINE NEGATIVE (NEGATIVE); NITRITE,URINE NEGATIVE (NEGATIVE); PH,URINE 6 (5-9); PROTEIN,URINE 1+ (NEGATIVE); UROBILINOGEN,URINE NORMAL (NORMAL)
[2018-03-16 09:16] LABS: AMPHETAMINE SCREEN, URINE NEGATIVE (NEGATIVE); BARBITURATE SCREEN URINE NEGATIVE (NEGATIVE); BENZODIAZEPINES SCREEN URINE NEGATIVE (NEGATIVE); CANNABINOID SCREEN, URINE NEGATIVE (NEGATIVE); COCAINE SCREEN URINE NEGATIVE (NEGATIVE); METHADONE STAT NEGATIVE (NEGATIVE); METHAMPHETAMINE SCREEN URINE S NEGATIVE (NEGATIVE); OPIATE SCREEN URINE NEGATIVE (NEGATIVE); OXYCODONE STAT NEGATIVE (NEGATIVE); PROPOXYPHENE STAT NEGATIVE (NEGATIVE); TRICYCLIC ANTIDEPRESSANTS SCRE NEGATIVE (NEGATIVE)
[2018-03-16 09:18] LABS: BACTERIA,URINE NEGATIVE /HPF; WBC,URINE 0-2 /HPF
[2018-03-16] MEDS ORDERED: NS IV 1000 ML 1,000 ML IV ONE (09:30)
[2018-03-16] MEDS ORDERED: diphenhydrAMINE 25 MG TAB (BENADRYL) PO ONE (09:45)
[2018-03-16] MEDS ORDERED: MAGNESIUM 1 GM/100 ML IVPB 100 ML IV ONE (09:45)
--- NOTE | 2018-03-16 10:10 | NUR ---
PT NOTIFIED I WOULD BE BUSY IN A ROOM. EXPLAINED HE WOULD NEED TO HIT THE CALL LIGHT IF HE NEEDED SOMETHING.
--- NOTE | 2018-03-16 11:08 | NUR ---
PT STATES HIS HEADACHE IS 5/10
--- NOTE | 2018-03-16 11:25 | NUR ---
IN TALKING WITH PT AT THIS TIME.
[2018-03-16] MEDS ORDERED: AMOX500C2 PO (11:36)
[2018-03-16] MEDS ORDERED: FLUT9.9S NSEACH (11:36)
[2018-03-16 11:53] VITALS: BP 127/65
== END 2018-03-16 11:53 | disposition home or self-care (01) ==
LOC: ER 07:50 → EDUNIT# 07:50 → ER 11:53
DX: G43.909 Migraine, unspecified, not intractable, without status migrainosus (principal); J32.2 Chronic ethmoidal sinusitis; M62.81 Muscle weakness (generalized); R20.2 Paresthesia of skin; R07.9 Chest pain, unspecified; K21.9 Gastro-esophageal reflux disease without esophagitis; F41.9 Anxiety disorder, unspecified; F32.9 Major depressive disorder, single episode, unspecified; Z79.51 Long term (current) use of inhaled steroids; Z87.442 Personal history of urinary calculi
CPT/HCPCS: 36415; 70450; 71046; 80053; 80306; 80320; 81000; 84484; 85025; 85379; 85610; 85730; 93005; 93041; 96361; 96365; 96375

== ENCOUNTER 2021-08-06 14:52 | Emergency (ER) | payer SELFPAY ==
[~2021-08-06] VITALS: Ht 178 cm; Wt 86.0 kg
[~2021-08-06 14:52] MED LIST changes: +AMOX500C2 PO; +CYCL10TA25 PO; +FLUT9.9S NSEACH
--- NOTE | 2021-08-06 15:22 | ED General ---
General Chief Complaint: General Problems/Pain Stated Complaint: BACK PAIN,WALKER,NAUSEA Source of Information: Patient Exam Limitations: No Limitations History of Present Illness Date Seen by Provider: Aug 06, 2021 Time Seen by Provider: 13:09 Initial Comments Patient is a 40-year-old male who presents to the emergency department today wi th a chief complaint of low back pain, severe headache, nausea, chills slight shortness of breath and decreased appetite. He is also complaining of some dribbling urine today. He is not COVID vaccinated. He is not sure if he has been around anybody with COVID or not. He took some Tylenol about an hour prior to arrival. Last bowel movement was this morning. States that he woke up with all of these symptoms suddenly this morning. Denies chest pain. Denies runny nose sore throat or congestion. No rashes, joint pain or swelling. He is a smoker. He uses marijuana. No daily alcohol. All other review of systems reviewed and negative except as stated. Timing/Duration: 12 Hours Severity: Severe Associated Systoms: Diaphoresis, Fever/Chills, Headaches, Loss of Appetite, Nausea/Vomiting, Shortness of Air Allergies and Home Medications Allergies Coded Allergies: No Known Drug Allergies (Unverified , 04/15/09) Patient Home Medication List Home Medication List Reviewed: Yes Amoxicillin (Amoxicillin) 500 Mg Capsule, 1,000 MG PO BID Prescribed by: CHASE NUNEZ on 03/16/18 1136 Fluticasone Propionate (Flonase Allergy Relief) 9.9 Ml Freder[place].susp, 2 SPRAY NSEACH DAILY Prescribed by: CHASE NUNEZ on 03/16/18 1136 Ondansetron (Ondansetron Odt) 4 Mg Tab.rapdis, 4 MG PO Q8H PRN for nausea Prescribed by: CHANELLE IRIZARRY on 08/06/21 1713 Review of Systems Review of Systems Constitutional: see HPI EENTM: no symptoms reported Respiratory: short of breath Cardiovascular: no symptoms reported Gastrointestinal: nausea Genitourinary: hesitancy Musculoskeletal: back pain, muscle pain Skin: other (diaphoresis) Psychiatric/Neurological: Headache All Other Systems Reviewed Negative Unless Noted: Yes Past Ioqyntm-Jacwoy-Zlkotr Hx Patient Social History Tobacco Use?: Yes Tobacco type used: Cigarettes Smoking Status: Current Everyday Smoker Use of E-Cig and/or Vaping dev: No Substance use?: Yes Substance type: Marijuana Substance frequency: Couple times a week Alcohol Use?: No Pt feels they are or have been: No Immunizations Up To Date Influenza Vaccine Up-to-Date: No; Not Current First/Initial COVID19 Vaccinat: N/A Seasonal Allergies Seasonal Allergies: No Past Medical History Surgeries: No Respiratory: No Cardiac: No Neurological: No Reproductive Disorders: No Genitourinary: Yes Kidney Stones Gastrointestinal: Yes Gastroesophageal Reflux Musculoskeletal: Yes (left rotator cuff injury) Endocrine: No HEENT: No Cancer: No Psychosocial: Yes (history of prior substance abuse) Anxiety, Depression Integumentary: No Blood Disorders: No Adverse Reaction/Blood Tranf: No Family Medical History No Pertinent Family Hx, Cancer, Diabetes Physical Exam Vital Signs Vital Signs - First Documented 08/06/21 14:58 Temp 38.6 Pulse 99 Resp 20 B/P (MAP) 125/76 (92) Pulse Ox 96 O2 Delivery Room Air Capillary Refill : Height, Weight, BMI Height: 5'10.00" Weight: 185lbs. oz. 83.132864wn; 25.82 BMI Method:Estimated General Appearance: Anxious, Mild Distress Eyes: Bilateral Eye Normal Inspection, Bilateral Eye PERRL, Bilateral Eye EOMI HEENT: PERRL/EOMI Neck: Normal Inspection Respiratory: Lungs Clear, Normal Breath Sounds, No Accessory Muscle Use, No Respiratory Distress Cardiovascular: Regular Rate, Rhythm, Normal Peripheral Pulses Gastrointestinal: Normal Bowel Sounds, Non Tender, Soft Back: Normal Inspection, No CVA Tenderness, No Vertebral Tenderness Extremity: Normal Capillary Refill, Normal Inspection, Normal Range of Motion, Non Tender, No Calf Tenderness, No Pedal Edema Neurologic/Psychiatric: Alert, Oriented x3, No Motor/Sensory Deficits, Normal Mood/Affect, paper pattern folder II-XII Norm as Tested Skin: Normal Color, Warm/Dry Progress/Results/Core Measures Suspected Sepsis SIRS Temperature: Pulse: Respiratory Rate: Laboratory Tests 08/06/21 15:05: White Blood Count 8.8 Blood Pressure / Mean: Laboratory Tests 08/06/21 15:05: Creatinine 0.85, Platelet Count 246 Results/Orders Lab Results Laboratory Tests Test 08/06/21 15:05 08/06/21 15:08 08/06/21 17:16 Range/Units White Blood Count 8.8 4.3-11.0 10^3/uL Red Blood Count 5.04 4.30-5.52 10^6/uL Hemoglobin 15.1 13.3-17.7 g/dL Hematocrit 44 40-54 % Mean Corpuscular Volume 87 80-99 fL Mean Corpuscular Hemoglobin 30 25-34 pg Mean Corpuscular Hemoglobin Concent 34 32-36 g/dL Red Cell Distribution Width 12.7 10.0-14.5 % Platelet Count 246 130-400 10^3/uL Mean Platelet Volume 8.6 L 9.0-12.2 fL Immature Granulocyte % (Auto) 1 % Neutrophils (%) (Auto) 88 H 42-75 % Lymphocytes (%) (Auto) 4 L 12-44 % Monocytes (%) (Auto) 6 0-12 % Eosinophils (%) (Auto) 2 0-10 % Basophils (%) (Auto) 0 0-10 % Neutrophils # (Auto) 7.7 1.8-7.8 X 10^3 Lymphocytes # (Auto) 0.3 L 1.0-4.0 X 10^3 Monocytes # (Auto) 0.5 0.0-1.0 X 10^3 Eosinophils # (Auto) 0.2 0.0-0.3 10^3/uL Basophils # (Auto) 0.0 0.0-0.1 10^3/uL Immature Granulocyte # (Auto) 0.0 0.0-0.1 10^3/uL Neutrophils % (Manual) 85 % Lymphocytes % (Manual) 3 % Monocytes % (Manual) 10 % Eosinophils % (Manual) 2 % Blood Morphology Comment NORMAL Sodium Level 138 135-145 MMOL/L Potassium Level 3.5 L 3.6-5.0 MMOL/L Chloride Level 104 98-107 MMOL/L Carbon Dioxide Level 19 L 21-32 MMOL/L Anion Gap 15 H 5-14 MMOL/L Blood Urea Nitrogen 11 7-18 MG/DL Creatinine 0.85 0.60-1.30 MG/DL Estimat Glomerular Filtration Rate 114 BUN/Creatinine Ratio 13 Glucose Level 97 70-105 MG/DL Calcium Level 9.0 8.5-10.1 MG/DL C-Reactive Protein High Sensitivity 0.20 0.00-0.50 MG/DL Influenza Type A (RT-PCR) Not Detected Not Detecte Influenza Type B (RT-PCR) Not Detected Not Detecte SARS-CoV-2 RNA (RT-PCR) Detected H Not Detecte Urine Color YELLOW Urine Clarity CLEAR Urine pH 7.0 5-9 Urine Specific [place] 1.020 1.016-1.022 Urine Protein TRACE H NEGATIVE Urine Glucose (UA) NEGATIVE NEGATIVE Urine Ketones NEGATIVE NEGATIVE Urine Nitrite NEGATIVE NEGATIVE Urine Bilirubin NEGATIVE NEGATIVE Urine Urobilinogen 0.2 < = 1.0 MG/DL Urine Leukocyte Esterase NEGATIVE NEGATIVE Urine RBC (Auto) NEGATIVE NEGATIVE Urine RBC NONE /HPF Urine WBC NONE /HPF Urine Squamous Epithelial Cells NONE /HPF Urine Crystals NONE /LPF Urine Bacteria NEGATIVE /HPF Urine Casts NONE /LPF Urine Mucus SMALL H /LPF Urine Culture Indicated NO My Orders Orders - CHANELLE IRIZARRY MD Ed Iv/Invasive Line Start (08/06/21 15:17) Cbc With Automated Diff (08/06/21 15:17) Basic Metabolic Panel (08/06/21 15:17) Hs C Reactive Protein (08/06/21 15:17) Ua Culture If Indicated (08/06/21 15:17) Chest 1 View, Ap/Pa Only (08/06/21 15:17) Ns Iv 1000 Ml (Sodium Chloride 0.9%) (08/06/21 15:30) Ketorolac Injection (Toradol Injection) (08/06/21 15:30) Orphenadrine Inj (Ed Only) (Norflex Inje (08/06/21 15:30) Manual Differential (08/06/21 15:05) Ondansetron Injection (Zofran Injectio (08/06/21 16:00) Acetaminophen Tablet (Tylenol Tablet) (08/06/21 16:00) Hydrocodone/Apap 5/325 Tablet (Lortab 5 (08/06/21 17:15) Medications Given in ED Current Medications Medications Dose Ordered Sig/Erin Route Start Time Stop Time Status Last Admin Dose Admin Acetaminophen 1,000 mg ONCE ONCE PO 08/06/21 16:00 08/06/21 16:01 DC 08/06/21 16:14 1,000 MG Acetaminophen/ Hydrocodone Bitart 1 ea ONCE ONCE PO 08/06/21 17:15 08/06/21 17:16 DC 08/06/21 17:22 1 EA Ketorolac Tromethamine 30 mg ONCE ONCE IVP 08/06/21 15:30 08/06/21 15:31 DC 08/06/21 15:26 30 MG Ondansetron HCl 4 mg ONCE ONCE IVP 08/06/21 16:00 08/06/21 16:01 DC 08/06/21 16:14 4 MG Orphenadrine Citrate 60 mg ONCE ONCE IV 08/06/21 15:30 08/06/21 15:31 DC 08/06/21 15:26 60 MG Vital Signs/I&O 08/06/21 14:58 Temp 38.6 Pulse 99 Resp 20 B/P (MAP) 125/76 (92) Pulse Ox 96 O2 Delivery Room Air Capillary Refill : Progress Note : Time: 17:41 Progress Note Patient seen and examined by me, 40-year-old who is COVID-positive. Possible early small developing lower lobe infiltrate on chest x-ray otherwise vitals are stable and labs are within normal limits. He is nontoxic in appearance. I have provided him with the patient information for Paxlovid and advised him that it is still under emergency use authorization. He is reviewed the information and elects to go ahead and start the medication. It was provided to him here at this visit. Return precautions have been discussed. All questions are sought and answered Diagnostic Imaging Diagonstic Imaging: Xray Plain Films/CT/US/NM/MRI: chest Comments [facility] [place], [place] NAME: AN[facility] REC#: [id number] PT STATUS: REG ER : 1980 PHYSICIAN: CHANELLE IRIZARRY MD ADMIT DATE: 08/06/21/ER Draft Date of Exam:08/06/21 CHEST 1 VIEW, AP/PA ONLY CLINICAL INDICATION: Patient COVID positive. Patient has fever, bodyaches, shortness breath and back pain. EXAM: Portable chest x-ray upright view. COMPARISON: Chest x-ray dated 10/24/2015. FINDINGS: Lungs/pleura: There is minimal right basilar atelectasis versus infiltrates. Otherwise, lungs are clear. There is no pneumothorax. There is no pleural effusion. Mediastinum: Unremarkable. Pulmonary vasculature: Unremarkable. Heart: Unremarkable. Bones/extrathoracic soft tissue: Unremarkable. IMPRESSION: There is minimal right basilar atelectasis versus infiltrate. Otherwise there is no radiographic evidence of acute cardiopulmonary process. Dictated on workstation # [id number] Dict: 08/06/21 1617 Trans: 08/06/21 1620 CV [id number] Interpreted by: JAQUELIN DELACRUZ MD Electronically signed by: Departure Impression Primary Impression: COVID-19 Disposition: 01 HOME, SELF-CARE Condition: Stable Departure-Patient Inst. Decision time for Depature: 17:12 Referrals: NO,LOCAL PHYSICIAN (PCP/Family) Primary Care Physician Patient Instructions: COVID-19 (DC) Add. Discharge Instructions: Drink plenty of fluids to stay well-hydrated. Take bnym-pap-izzmhex ibuprofen 3 tablets which is 600 mg every 6 hours with food as needed for body aches and pains. Take the Paxlovid as directed. Come back to the emergency department if you have any worsening symptoms such as shortness of breath, feeling lightheaded or dizzy or any other emergent concerning symptoms. Quarantine at home for 5 days with a mask and then you can go out and about in public for 5 days with a mask. Scripts Ondansetron (Ondansetron Odt) 4 Mg Tab.rapdis 4 MG PO Q8H PRN for nausea, #20 TAB Prov: CHANELLE IRIZARRY MD 08/06/21 CHANELLE IRIZARRY MD Aug 06, 2021 15:22
[2021-08-06 15:30] LABS: BASOPHILS % (AUTO) 0 % (0-10); EOSINOPHILS # (AUTO) 0.2 10^3/uL (0.0-0.3); EOSINOPHILS % (AUTO) 2 % (0-10); HEMATOCRIT 44 % (40-54); HEMOGLOBIN 15.1 g/dL (13.3-17.7); LYMPHOCYTES # (AUTO) 0.3 X 10^3 (1.0-4.0); LYMPHOCYTES % (AUTO) 4 % (12-44); MEAN CORPUSCULAR HEMOGLOBIN 30 pg (25-34); MEAN CORPUSCULAR HGB CONC 34 g/dL (32-36); MEAN CORPUSCULAR VOLUME 87 fL (80-99); MEAN PLATELET VOLUME 8.6 fL (9.0-12.2); MONOCYTES # (AUTO) 0.5 X 10^3 (0.0-1.0); MONOCYTES % (AUTO) 6 % (0-12); NEUTROPHILS # (AUTO) 7.7 X 10^3 (1.8-7.8); NEUTROPHILS % (AUTO) 88 % (42-75); PLATELET COUNT 246 10^3/uL (130-400); WHITE BLOOD COUNT 8.8 10^3/uL (4.3-11.0)
[2021-08-06] MEDS ORDERED: KETOROLAC 30 MG/ML VIAL IVP ONE (15:30)
[2021-08-06] MEDS ORDERED: ORPHENADRINE 60 MG/2 ML (NORFLEX) AMP (ED ONLY) IV ONE (15:30)
[2021-08-06] MEDS ORDERED: NS IV 1000 ML 1,000 ML IV SCH (15:30)
[2021-08-06 15:37] LABS: POTASSIUM 3.5 MMOL/L (3.6-5.0)
[2021-08-06 15:43] LABS: CREATININE SERUM 0.85 MG/DL (0.60-1.30)
[2021-08-06 15:48] LABS: EOSINOPHILS % (MANUAL) 2 %; LYMPHOCYTES % (MANUAL) 3 %; MONOCYTES % (MANUAL) 10 %; NEUTROPHILS % (MANUAL) 85 %; RBC MORPH NORMAL
[2021-08-06] MEDS ORDERED: ACETAMINOPHEN 500 MG TAB (TYLENOL) PO ONE (16:00)
[2021-08-06] MEDS ORDERED: ONDANSETRON 4 MG/2 ML (SDV) Z0FRAN IVP ONE (16:00)
--- NOTE | 2021-08-06 16:21 | Diagnostic Imaging Report ---
CLINICAL INDICATION: Patient COVID positive. Patient has fever, bodyaches, shortness breath and back pain. EXAM: Portable chest x-ray upright view. COMPARISON: Chest x-ray dated 10/24/2015. FINDINGS: Lungs/pleura: There is minimal right basilar atelectasis versus infiltrates. Otherwise, lungs are clear. There is no pneumothorax. There is no pleural effusion. Mediastinum: Unremarkable. Pulmonary vasculature: Unremarkable. Heart: Unremarkable. Bones/extrathoracic soft tissue: Unremarkable. IMPRESSION: There is minimal right basilar atelectasis versus infiltrate. Otherwise there is no radiographic evidence of acute cardiopulmonary process. Dictated by: Dictated on workstation # [id number]
[2021-08-06] MEDS ORDERED: ONDA4TAB11 PO (17:13)
[2021-08-06] MEDS ORDERED: HYDROcodone/APAP 5 MG/325 MG (LORTAB) TAB PO ONE (17:15)
[2021-08-06 17:20] LABS: BILIRUBIN,URINE NEGATIVE (NEGATIVE); CLARITY,URINE CLEAR; COLOR,URINE YELLOW; GLUCOSE, URINE (UA) NEGATIVE (NEGATIVE); KETONES,URINE NEGATIVE (NEGATIVE); LEUKOCYTE ESTERASE ,URINE NEGATIVE (NEGATIVE); NITRITE,URINE NEGATIVE (NEGATIVE); PROTEIN,URINE TRACE (NEGATIVE)
[2021-08-06 17:31] LABS: BACTERIA,URINE NEGATIVE /HPF
[2021-08-06] MEDS ORDERED: RX-NIRMATRELVIR/RITONAVIR (PAXLOVID) #30 TABS PO ONE (17:58)
[2021-08-06 18:02] VITALS: BP 111/57
[2021-08-06] MEDS ORDERED: RX-NIRMATRELVIR/RITONAVIR (PAXLOVID) #30 TABS PO SCH (21:00)
== END 2021-08-06 18:00 | disposition home or self-care (01) ==
LOC: EDUNIT# 14:52 → ER 14:54
DX: U07.1 COVID-19 (principal); F17.210 Nicotine dependence, cigarettes, uncomplicated; Z28.310 Unvaccinated for COVID-19
CPT/HCPCS: 36415; 71045; 80048; 81000; 85007; 85027; 86141; 87636

== ENCOUNTER 2022-02-06 19:29 | Emergency (ER) | payer SELFPAY ==
[~2022-02-06] VITALS: Ht 178 cm; Wt 89.0 kg
[~2022-02-06 19:29] MED LIST changes: +ONDA4TAB11 PO
[2022-02-06] MEDS ORDERED: KETOROLAC 30 MG/ML VIAL IM ONE (19:45)
[2022-02-06] MEDS ORDERED: TETANUS,DIPTH,PERTUSS P/F (BOOSTRIX) 0.5 ML VIAL IM ONE (19:45)
[2022-02-06] MEDS ORDERED: HYDROcodone/APAP 5 MG/325 MG (LORTAB) TAB PO ONE (19:45)
--- NOTE | 2022-02-06 19:45 | ED Upper Extremity ---
General Chief Complaint: Laceration Stated Complaint: LEFT THUMB LACERATION, CUT A CHUNK OUT Nursing Triage Note: left thumb laceration Source: patient Exam Limitations: no limitations History of Present Illness Date Seen by Provider: Feb 06, 2022 Time Seen by Provider: 19:33 Initial Comments 41-year-old male with no pertinent past medical history that is fakkk-zjsh-hmvpuobz coming in after he was skinning a deer, and the knife slipped and he cut across his left thumb taking a small piece of skin out. He is unsure of his last tetanus vaccine, but did get his vaccines coming up. He is having constant, throbbing pain in his thumb. This happened about an hour and a half prior to arrival. He was not going to come, but the bleeding stopped, and then started again. He has not take any medications daily including no blood thinners. Allergies and Home Medications Allergies Coded Allergies: No Known Drug Allergies (Unverified , 04/15/09) Patient Home Medication List Home Medication List Reviewed: Yes Cephalexin (Cephalexin) 500 Mg Tablet, 500 MG PO QID Prescribed by: MINO ROBLEDO on 02/06/229 Discontinued Medications Amoxicillin (Amoxicillin) 500 Mg Capsule, 1,000 MG PO BID Discontinued Reason: No Longer Taking Prescribed by: CHASE NUNEZ on 03/16/18 1136 Last Action: Discontinued Fluticasone Propionate (Flonase Allergy Relief) 9.9 Ml [place].susp, 2 SPRAY NSEACH DAILY Discontinued Reason: No Longer Taking Prescribed by: CHASE NUNEZ on 03/16/18 1136 Last Action: Discontinued Ondansetron (Ondansetron Odt) 4 Mg Tab.rapdis, 4 MG PO Q8H PRN for nausea Discontinued Reason: No Longer Taking Prescribed by: CHANELLE IRIZARRY on 08/06/21 1713 Last Action: Discontinued Review of Systems Constitutional: No fever EENTM: no symptoms reported Respiratory: no symptoms reported Cardiovascular: no symptoms reported Gastrointestinal: no symptoms reported Genitourinary: no symptoms reported Musculoskeletal: see HPI Skin: see HPI Psychiatric/Neurological: No Symptoms Reported All Other Systems Reviewed Negative Unless Noted: Yes Past Neeqgka-Chcvdp-Vtrsjq Hx Patient Social History Tobacco Use?: Yes Tobacco type used: Cigarettes Substance use?: No Alcohol Use?: No Pt feels they are or have been: No Immunizations Up To Date First/Initial COVID19 Vaccinat: N/A Second COVID19 Vaccination Tomi: N/A Third COVID19 Vaccination Date: N/A Seasonal Allergies Seasonal Allergies: No Past Medical History Surgery/Hospitalization HX: denies Surgeries: No Respiratory: No Cardiac: No Neurological: No Reproductive Disorders: No Genitourinary: Yes Kidney Stones Gastrointestinal: Yes Gastroesophageal Reflux Musculoskeletal: Yes (left rotator cuff injury) Endocrine: No HEENT: No Cancer: No Psychosocial: Yes (history of prior substance abuse) Anxiety, Depression Integumentary: No Blood Disorders: No Adverse Reaction/Blood Tranf: No Family Medical History No Pertinent Family Hx, Cancer, Diabetes Physical Exam Vital Signs Vital Signs - First Documented 02/06/22 19:34 Temp 36.0 Pulse 76 Resp 18 B/P (MAP) 108/71 (83) Pulse Ox 97 O2 Delivery Room Air Capillary Refill : Less Than 3 Seconds Height, Weight, BMI Height: 5'10.00" Weight: 185lbs. oz. 83.670171vf; 28.00 BMI Method:Estimated General Appearance: WD/WN, no apparent distress HEENT: PERRL/EOMI, normal ENT inspection, pharynx normal Neck: non-tender, full range of motion, supple, normal inspection Cardiovascular: regular rate, rhythm, no edema, no murmur Respiratory: chest non-tender, lungs clear, normal breath sounds, no respiratory distress, no accessory muscle use Gastrointestinal: normal bowel sounds, non tender, soft; No distended, No guarding, No rebound Back: normal inspection, no CVA tenderness Shoulder: normal inspection, non-tender Elbow/Forearm: normal inspection, non-tender Wrist: Yes normal inspection, Yes non-tender Hand: Left (Left thumb with 1 and half centimeter area of skin removed that is 2 to 3 mm deep with visible subcutaneous tissue. No bone seen. Neurovascularly intact distal to the injury.) Neurologic/Psychiatric: no motor/sensory deficits, alert, normal mood/affect Skin: normal color, warm/dry Lymphatic: no adenopathy Progress/Results/Core Measures Results/Orders My Orders Orders - MINO ROBLEDO MD Dipht,Pertuss(Acell),Tet Adult (Boostrix (02/06/22 19:45) Ketorolac Injection (Toradol Injection) (02/06/22 19:45) Hydrocodone/Apap 5/325 Tablet (Lortab 5 (02/06/22 19:45) Medications Given in ED Current Medications Medications Dose Ordered Sig/Erin Route Start Time Stop Time Status Last Admin Dose Admin Acetaminophen/ Hydrocodone Bitart 1 ea ONCE ONCE PO 02/06/22 19:45 02/06/22 19:46 DC 02/06/22 19:52 1 EA Diphtheria/ Tetanus/Acell Pertussis 0.5 ml ONCE ONCE IM 02/06/22 19:45 02/06/22 19:46 DC 02/06/22 19:53 0.5 ML Ketorolac Tromethamine 15 mg ONCE ONCE IM 02/06/22 19:45 02/06/22 19:46 DC 02/06/22 19:53 15 MG Vital Signs/I&O 02/06/22 19:34 Temp 36.0 Pulse 76 Resp 18 B/P (MAP) 108/71 (83) Pulse Ox 97 O2 Delivery Room Air Blood Pressure Mean: 83 Progress Progress Note : Progress Note 41-year-old male with above history coming in due to an area of his thumb that was partially avulsed very superficial. It was cleaned, tetanus updated, given oral as well as IM medications for pain. Pressure was held until the bleeding stopped. I believe he is stable for discharge with outpatient follow-up. He was sent home with strict return precautions Departure Impression Primary Impression: Avulsion of skin of finger Qualified Codes: S61.209A - Unspecified open wound of unspecified finger without damage to nail, initial encounter Disposition: 01 HOME, SELF-CARE Condition: Stable Departure-Patient Inst. Decision time for Depature: 20:31 Referrals: [facility] [place] ([place]P/Family) Primary Care Physician Patient Instructions: Wound Care ED Add. Discharge Instructions: This wound likely will continue to ooze a small amount of blood for the next day or so. If so, apply direct pressure to it with your other hand, and after it slows down rabbit and the bandage that we gave you. Keep the wound clean, covered, and you will be on antibiotics for next week. Take ibuprofen 600 mg every 6 hours as needed for pain. If you notice any redness spreading up your skin, pus coming out of the wound, or new fever, then I want you to be seen by a doctor. Scripts Cephalexin (Cephalexin) 500 Mg Tablet 500 MG PO QID for 7 Days, #28 TAB Prov: MINO ROBLEDO MD 02/06/22 Work/School Note: Work Release Form Date Seen in the Emergency Department: Feb 06, 2022 Return to Work: Feb 08, 2022 Restrictions: No Restrictions MINO ROBLEDO MD Feb 06, 2022 19:45
[2022-02-06] MEDS ORDERED: CEPH500T PO (19:49)
[2022-02-06 20:35] VITALS: BP 108/71
== END 2022-02-06 20:35 | disposition home or self-care (01) ==
LOC: EDUNIT# 19:29 → ER 19:32
DX: S61.002A Unspecified open wound of left thumb without damage to nail, initial encounter (principal); F17.210 Nicotine dependence, cigarettes, uncomplicated; Z23 Encounter for immunization; Z28.310 Unvaccinated for COVID-19; W26.0XXA Contact with knife, initial encounter
CPT/HCPCS: 90471; 90715; 96372